=== PATIENT | female | born 1945 | race Caucasian/White ===

== ENCOUNTER 2019-02-21 12:31 | Inpatient (IN) | payer MEDICARE, BC ==
[2019-02-21] MEDS ORDERED: Ondansetron 4 MG/2 ML SDV IV PRN (13:09)
[2019-02-21] MEDS ORDERED: Morphine 2 MG/ML Syringe IVPUSH PRN (13:09)
[2019-02-21] MEDS ORDERED: Ondansetron 4 MG Tab.DIS PO PRN (13:09)
[2019-02-21] MEDS ORDERED: Loratadine 10 MG Tab PO PRN (13:11)
[2019-02-21] MEDS ORDERED: Potassium Chloride 10 MEQ in Premix Bag 1 BAG IV ONE (13:14)
[2019-02-21] MEDS ORDERED: Sodium Chloride 0.9% 1,000 ML IV SCH (13:15)
[2019-02-21] MEDS: Metoprolol Succinate 25 MG Tab.ER PO SCH (13:40)
[2019-02-21] MEDS: Magnesium Oxide 400 MG Tab PO SCH (13:40)
[2019-02-21] MEDS ORDERED: Metoprolol Tartrate 5 MG/5 ML SDV IVPUSH ONE (15:45)
[2019-02-21] MEDS: Sodium Chloride 0.9% 10 ML Syringe FLUSH PRN ×2 (16:09→17:12)
[2019-02-21] MEDS: Sucralfate 1 GM Tab PO SCH (16:17)
[2019-02-21] MEDS: Pantoprazole 40 MG Vial IVPUSH SCH (17:13)
[2019-02-21] MEDS: Digoxin 500 MCG/2 ML Amp IVPUSH SCH ×2 (17:13→23:27)
[2019-02-21] MEDS ORDERED: Iopamidol 612 MG/ML 100 ML Bottle IVPUSH ONE (17:21)
--- NOTE | 2019-02-21 17:47 | HP ---
CHIEF COMPLAINT: Regular followup appointment, but with nausea, diarrhea, dizziness. HISTORY OF PRESENT ILLNESS: This is a 73-year-old female who started feeling ill around Thanksgiving time. For the past 3 weeks, she has felt very bloated and nauseated. She has gained about 6 pounds despite not eating much, but she is drinking Coke. She otherwise states that she normally isn't constipated, but then there were a few days where she had more gas, and when it finally let go, she had diarrhea. It did help the pain, but she started vomiting. She is having these episodes more frequently. It is quite sore in her epigastric area when it comes. Her urine has been darker. Her stool was darker, but now it is light. She was taking ibuprofen for the pain. She is on Xarelto due to AFib. She has also felt dizzy and more short of breath when she tries to do anything. She even thought about going to the emergency room yesterday, but since she had an appointment, she waited until her visit today. ALLERGIES: Include penicillin, anaphylaxis; latex, rash; peas, hives; strawberries, hives; wool and alcohol; rash. MEDICATIONS: Her medication list is reviewed and it shows her to have Norvasc 5 mg daily. She uses a CPAP, Lasix 20 mg daily, lisinopril 20 mg daily, Claritin 10 mg as needed for allergies, magnesium 400 daily, Toprol 25 mg daily was at higher doses in the past, Paxil 20 mg daily, and Xarelto 20 mg daily. PAST MEDICAL HISTORY: Does include chronic AFib back in 2013 with RVR. She saw EP. She had a cardioversion, but went back into AFib. She had digoxin in the past due to higher rates, but it eventually was discontinued and she remains on Toprol. In 2015, she had an ablation pulmonary vein and another cardioversion during the procedure. Xarelto was recommended lifelong. She also had negative PET for ischemia in 2014, allergic rhinitis, depression, dilated cardiomyopathy, her last EF was 45% in 2014. She has had a previous head injury, essential hypertension, mitral regurgitation which was just trivial back in 2015, obstructive sleep apnea, she is compliant with CPAP, obesity. FAMILY HISTORY: Both parents are . Her mother had heart problems. Her father had lupus. SOCIAL HISTORY: She is . She lives at home with her , he has some memory problems, a retired business care navigator. She is a nonsmoker. She has 3 children. REVIEW OF SYSTEMS: General: As stated in HPI with the weight gain. No fever, no chills. HEENT: No trouble swallowing. No sore throat. Cardiac: She has not had chest pain, but has felt more short of breath. She is not really noticing these palpitations. Respiratory: Initially denied cough, but was coughing a little bit later while in the hospital. No wheezing. Abdomen: As stated in HPI. She has had nausea, vomiting, diarrhea. No blood in the stools, but they have been darker. Genitourinary: No burning with urination, but darker urination. Musculoskeletal: No new joint aches or pains. Otherwise, all systems reviewed and found to be negative unless otherwise stated. PHYSICAL EXAMINATION: Vital Signs: On admission to the hospital, weight 117.6 kg, pulse 145, blood pressure of 114/73, respiratory rate 16, O2 of 95% on room air, temperature 98.8. General: She is in no acute distress, but appears pale. Heart: Irregularly irregular with tachycardia. It was honestly too fast to appreciate any murmur. Lungs: Lung sounds were clear to auscultation bilaterally without crackles or wheezes. Abdomen: Positive bowel sounds. It is soft. Mildly distended and tender, especially in the mid epigastric area. No masses appreciated, but there appeared to be some air that was moving around, possibly dilated loops of bowel. However, she is not actively vomiting. LABORATORY DATA: Lab work obtained shows her to have a hemoglobin of 11.0, previous 14.3; white count 5.7; platelets 180. Sodium 142, glucose 79, BUN 16, creatinine 0.9, potassium 3.4, chloride 108, bicarb 23, calcium 8.9. Albumin, ALT, AST normal. Bilirubin 1.4. Lipids done as a regular exam. Cholesterol 110 total, HDL 25, lipase was less than 100. ProBNP was elevated at 8777. Troponin negative. Magnesium 2. INR 1.3. EKG was showing atrial fibrillation, rate 130 with RVR. Chest x-ray showed no infiltrates. She had cardiomegaly, but the lungs were clear. ASSESSMENT: 1. Atrial fibrillation with rapid ventricular rates. The patient has a known history of atrial fibrillation, possibly increased rate could be due to not feeling well, possibly acute blood loss anemia from an ulcer. Her hemoglobin has decreased. She appears dehydrated, it may fall further. At this point, we will give her an extra dose of her Toprol. Give her some IV metoprolol if needed. Hold off on Cardizem due to her history of heart failure and give her some IV digoxin. We will monitor her with telemetry. 2. Anemia, possibly from gastrointestinal bleeding. We will check her stool for occult blood. We will give her IV Protonix. I will give her some Carafate. We will see if this helps her abdominal pain. We will also get a CT scan. 3. Shortness of breath. This is presumably due to tachycardia. We will give her some IV fluids, but not more than a liter to see if that will help heart rates. 4. Abdominal pain, possibly ulcer. We are further investigating. 5. Essential hypertension. I am going to hold on her Norvasc and lisinopril to allow more metoprolol for rate control. 6. Obstructive sleep apnea. She is bringing in her CPAP. 7. Deep vein thrombosis prophylaxis. I will put her on SCDs. Due to concern for gastrointestinal bleeding, I am going to hold the Xarelto. PLAN: The patient is admitted to Acute Care. She is a code level 1. We will give her some IV Protonix, some fluids, lab work, monitoring rate control, monitoring with telemetry. Anticipate she will need at least a 2-night stay. She is aware that if her condition worsens, we would transfer her down to [facility]. MKA: 02/21/2019 17:06:11 MODL: 02/21/2019 17:39:12 /[id number]
--- NOTE | 2019-02-21 18:10 | CT ---
[id number] CT/CT Abdomen Pelvis W IV EXAM: ABDOMEN AND PELVIS CT WITH CONTRAST INDICATION: ABDOMINAL PAIN. COMPARISON: None. DISCUSSION: Colonic diverticulosis without evidence of diverticulitis. Cholelithiasis without CT evidence of acute cholecystitis. Ultrasound could provide further evaluation. The heart is enlarged with reflux of contrast into the hepatic veins and small bilateral pleural effusions compatible with cardiac insufficiency and fluid overload. 15 x 14 mm indeterminate left adrenal nodule. 56 mm cyst lower pole right kidney. Other tiny hypodense lesions scattered throughout both kidneys are too small to further characterize. Small fat-containing epigastric hernia. The pancreas, right adrenal gland, small bowel and appendix are normal in appearance. Minimal free fluid in the pelvis. No free air or adenopathy. Grade 1 degenerative L4-L5 spondylolisthesis. Degenerative changes throughout the imaged spine. The osseous structures are otherwise unremarkable. IMPRESSION: 1. Colonic diverticulosis without evidence of diverticulitis. 2. Cardiomegaly and small bilateral pleural effusions suggesting congestive heart failure. 3. Cholelithiasis without CT evidence of acute cholecystitis. Fran Nava MD 02/21/19 [id number] Thank you for allowing us to participate in the care of your patient.
[2019-02-22] MEDS: Sucralfate 1 GM Tab PO SCH ×2 (06:33→11:04)
[2019-02-22] MEDS: Pantoprazole 40 MG Vial IVPUSH SCH ×2 (06:34→18:16)
[2019-02-22 06:45] LABS: CHLORIDE,CL 106 mmol/L (98-107); SODIUM,NA 142 mmol/L (136-145)
[2019-02-22 06:52] LABS: ANION GAP 12.7 mmol/L (10-20)
[2019-02-22] MEDS ORDERED: amLODIPine 5 MG Tab PO SCH (08:00)
[2019-02-22] MEDS: PARoxetine 20 MG Tab PO SCH (08:36)
[2019-02-22] MEDS: Metoprolol Succinate 50 MG Tab.ER PO SCH (08:36)
[2019-02-22] MEDS: Magnesium Oxide 400 MG Tab PO SCH (08:37)
[2019-02-22] MEDS: Metoprolol Succinate 25 MG Tab.ER PO SCH (08:43)
[2019-02-22] MEDS ORDERED: Potassium Chloride 10 MEQ Tab.ER PO ONE (08:48)
[2019-02-22] MEDS ORDERED: Lisinopril 10 MG Tab PO ONE (08:48)
[2019-02-22] MEDS ORDERED: Furosemide 20 MG Tab PO ONE (08:49)
[2019-02-22] MEDS: Digoxin 125 MCG Tab PO SCH (09:14)
--- NOTE | 2019-02-22 09:28 | PN ---
Progress Note for APRIL WALDRON Date: 02/22/2019 Room #: VM.202 SUBJECTIVE: This is hospital day #2 on a 73-year-old admitted for abdominal pain and atrial fibrillation with RVR. She states that the pain is better, but not gone. She had a CT which did show gallstones, but no other acute pathology, no acute cholecystitis. She has been on IV Protonix. She has not had any black stools. Her hemoglobins are stable. Her shortness of breath has improved. She did get IV digoxin yesterday and increased metoprolol, and her heart rates are now down into the 110s. Her last heart rates up to 150s were around 5 p.m. She otherwise has been tolerating full liquid diet, but did have some mild vomiting from some juice last night. She did not require any pain medications. OBJECTIVE: Vital Signs: Temperature 97.3, her pulse was 93, blood pressure 120/86, respiratory rate 17, and O2 of 97% on room air. General: She is in no acute distress. Heart: Irregularly irregular. Lungs: Lung sounds are decreased, but no crackles or wheezes appreciated. Decreased mostly in the bases. Abdomen: Nondistended, nontender. She does admit she has had some right upper quadrant and mid epigastric tenderness. Extremities: Support stockings in place. She has no edema. Mental Status: Alert and orientated x3. LABORATORY DATA: Lab work today shows normal white count 4.4, hemoglobin 11.1, platelets 157. Sodium 142, potassium 3.7, chloride 106, bicarb 27, BUN 12, creatinine 0.8, glucose 86. TSH normal. ASSESSMENT: 1. Atrial fibrillation with rapid ventricular response. The patient is improving on increased metoprolol and digoxin. We will give her 50 mg of metoprolol today, 125 of digoxin orally. Monitor her with telemetry. 2. Abdominal pain, possibly due to gallstones. We will get her set up for an ultrasound, sounds like that will be outpatient. She still potentially could have an ulcer, so she will avoid all NSAIDs, and we will keep her on IV Protonix and Carafate. 3. Chronic diastolic heart failure. Actually, her last EF was like 45%. She will need this repeated when she is discharged. We will restart her Lasix 20 mg daily. Her lisinopril, I will restart at 10 mg daily, and monitor her fluid status closely. She has been off IV fluids. 4. Possible peptic ulcer disease. We will continue the current medications as described above. Likely discharge her home on PPI for at least 4 to 6 weeks. 5. Sleep apnea. She was using her CPAP. 6. Anemia. Hemoglobins are stable. We will repeat tomorrow. 7. Essential hypertension, controlled. I will still hold the Norvasc, but restart the lisinopril. 8. Deep vein thrombosis prophylaxis, so I am restarting her Xarelto. 9. Obesity. PLAN: At this point, the patient will continue acute cares. She will be upgraded on diet to regular cardiac. We will restart her oral Lasix and lisinopril. Monitor heart rates with telemetry as she does have a history of severe bradycardia in the past. We will give her some potassium today due to restarting Lasix. Repeat lab work tomorrow. Anticipate she will need another night stay until she is medically stabilized to go home. She will need to be stabilized from a cardiac standpoint before any decision would be made about gallbladder surgery versus maybe even needing an EGD to rule out ulcer. Possibly, she could have both conditions, and this was discussed with her. ISIAHA: 02/22/2019 08:55:07 MODL: 02/22/2019 09:20:44 /[id number]
[2019-02-22] MEDS: Acetaminophen 325 MG Tab PO PRN ×2 (11:34→19:15)
[2019-02-22] MEDS: Sodium Chloride 0.9% 10 ML Syringe FLUSH PRN (18:17)
[2019-02-22] MEDS ORDERED: Rivaroxaban 10 MG Tab PO SCH (20:00)
[2019-02-23] MEDS: Pantoprazole 40 MG Vial IVPUSH SCH (05:59)
[2019-02-23] MEDS: Sodium Chloride 0.9% 10 ML Syringe FLUSH PRN (05:59)
[2019-02-23 06:40] LABS: ANION GAP 13.8 mmol/L (10-20); CHLORIDE,CL 108 mmol/L (98-107); SODIUM,NA 145 mmol/L (136-145)
[2019-02-23] MEDS: Digoxin 125 MCG Tab PO SCH (07:40)
[2019-02-23] MEDS: PARoxetine 20 MG Tab PO SCH (07:40)
[2019-02-23] MEDS: Metoprolol Succinate 50 MG Tab.ER PO SCH (07:40)
[2019-02-23] MEDS: Magnesium Oxide 400 MG Tab PO SCH (07:41)
--- NOTE | 2019-02-23 11:02 | DISCH ---
PRIMARY DISCHARGE DIAGNOSES: 1. Atrial fibrillation with rapid ventricular response. 2. Abdominal pain probably due to some cholecystitis. No concern for acute cholecystitis requiring immediate surgery on this admission. 3. Chronic diastolic heart failure, EF 45%, stable without exacerbation. 4. Possible peptic ulcer disease. Hemoccult negative. No gastrointestinal bleeding. 5. Mild anemia with stable hemoglobins. 6. Sleep apnea, on CPAP. 7. Essential hypertension, controlled. 8. Obesity. 9. Depression. REASON FOR ADMISSION: On the date of admission, this 73-year-old female with a known history of atrial fibrillation going back to 2013, she has even had cardioversion and ablations in the past, came into the clinic not feeling well. She was nauseated, been feeling unwell with bloating and diarrhea since . She was found to have a heart rate of 143. She had been having darker stools, a lot of epigastric pain. Therefore, she was admitted. Concern could be possible GI bleeding, her hemoglobin had dropped from 14 to 11. This was monitored in the hospital and she had no ongoing bleeding. She did undergo an abdominal CT due to the spells of abdominal pain and it was noted to have diverticulosis, but no diverticulitis. There were gallstones. Ultrasound was recommended. The patient had 1 attack yesterday afternoon, was given Tylenol. She did not require any morphine. She is feeling better today. She was tolerating diet, eating 100%, was n.p.o. this morning for her planned ultrasound in the clinic. Discussed with the patient if her pain becomes severe, she would need to go to the emergency room. Lab work was also monitored. Her LFTs were normal. Her bilirubin initially was 1.4, came down to 1.1 on discharge. Hemoglobin was 11.7 on discharge. White count normal. TSH normal. Her heart rates improved with IV Lopressor 5 mg and increasing metoprolol up to 50, and then I loaded her with IV digoxin 500 mcg, and she will receive 125 daily. Heart rates improved. Her fastest heart rates were in the 150s on the , but she has had all heart rates under 110 since then of mostly in the 90s to 100. She is not coughing. No chest pain. Breathing is better and she was deemed stable for discharge. Lasix was initially held but restarted yesterday . PHYSICAL EXAMINATION: Discharge Vital Signs: Included temperature 96.3, pulse 99, blood pressure 125/66, respiratory rate 18, O2 of 96 on room air. General: She is in no acute distress. Heart: Regularly irregular. Lungs: Lung sounds were clear to auscultation bilaterally without crackles or wheezes. Abdomen: Nondistended. Mild tenderness in the right upper quadrant, but no rebound. No guarding. Extremities: Warm and dry. No edema. Mental Status: She is alert and orientated x3. DISCHARGE PLANS AND INSTRUCTIONS: She will follow up in the clinic with Dr. Beyer on 03/03/2019. An echo was scheduled for early March. She will have an ultrasound today and we will discuss with surgeon possible gallbladder surgery and at least try to get her stabilized from a cardiac standpoint as well for surgery. Prilosec 20 mg daily for 2 weeks, increase Toprol to 50 mg on discharge, digoxin 125 daily. This was all discussed with the patient who is agreeable with this plan. She is also on her Xarelto. We did hold it on the 16th until we ruled out GI bleeding, but then resumed it. Greater than 30 minutes spent on this discharge process. MKA: 02/23/2019 10:28:57 MODL: 02/23/2019 10:52:30 /[id number]
== END 2019-02-23 11:35 | disposition home or self-care (01) | DRG 309 ==
LOC: VM.MS 12:34
PROVIDERS: ADMIT Internal Medicine; ATTEND Internal Medicine
DX: I48.91 Unspecified atrial fibrillation (principal); I50.32 Chronic diastolic (congestive) heart failure; K80.10 Calculus of gallbladder with chronic cholecystitis without obstruction; Z68.41 Body mass index [BMI] 40.0-44.9, adult; D64.9 Anemia, unspecified; G47.33 Obstructive sleep apnea (adult) (pediatric); F32.9 Major depressive disorder, single episode, unspecified; K57.30 Diverticulosis of large intestine without perforation or abscess without bleeding; I11.0 Hypertensive heart disease with heart failure; K27.9 Peptic ulcer, site unspecified, unspecified as acute or chronic, without hemorrhage or perforation; I42.0 Dilated cardiomyopathy; E66.9 Obesity, unspecified; I34.0 Nonrheumatic mitral (valve) insufficiency; Z99.81 Dependence on supplemental oxygen; Z88.0 Allergy status to penicillin; Z91.040 Latex allergy status; Z91.018 Allergy to other foods; Z91.09 Other allergy status, other than to drugs and biological substances; Z79.899 Other long term (current) drug therapy
CPT/HCPCS: 36415; 74177; 80048; 80053; 82274; 82962; 83735; 83880; 84443; 84484; 85018; 85025; 85027; 85610; A9270-GY; C9113; J1160; J2405; J3480; J3490; J7030; Q9967

== ENCOUNTER 2019-03-07 14:48 | Emergency (ER) | payer MEDICARE, BC ==
[2019-03-07] MEDS ORDERED: Sodium Chloride 0.9% 10 ML Syringe FLUSH PRN (15:04)
[2019-03-07] MEDS ORDERED: Ondansetron 4 MG/2 ML SDV IVPUSH ONE (15:36)
[2019-03-07] MEDS ORDERED: Sodium Chloride 0.9% 1,000 ML IV ONE (15:36)
--- NOTE | 2019-03-07 15:46 | CR ---
[id number] RAD/RAD Chest PA or AP 1V EXAM: RAD Chest PA or AP 1V INDICATION: EPIGASTRIC PAIN, FEVER, CHILLS. COMPARISON: None. DISCUSSION: Cardiomediastinal silhouette is enlarged. No infiltrate, effusion, pneumothorax, or edema. Low lung volumes associated vascular crowding. IMPRESSION: Low lung volumes associated vascular crowding. Otherwise, no acute cardiopulmonary findings. Dereck So DO 03/07/19 1545 Thank you for allowing us to participate in the care of your patient.
[2019-03-07 16:10] LABS: CHLORIDE,CL 99 mmol/L (98-107); SODIUM,NA 134 mmol/L (136-145)
[2019-03-07 16:12] LABS: ANION GAP 16.4 mmol/L (10-20)
[2019-03-07] MEDS ORDERED: Take Home: Ciprofloxacin 500 MG Tab, 2 Tab Pack PO ONE (17:00)
[2019-03-07] MEDS ORDERED: Metoclopramide 10 MG Tab PO ONE (17:02)
--- NOTE | 2019-03-08 13:23 | EDM.PDOC ---
ED HPI GENERAL MEDICAL PROBLEM - General Chief Complaint: Gastrointestinal Problem Stated Complaint: heart Time Seen by Provider: 03/07/19 15:00 - History of Present Illness INITIAL COMMENTS - FREE TEXT/NARRATIVE: Pt. presents to ER with complaints of nausea, vomiting, and diarrhea for several days. She has been diagnosed with gallbladder disease but is not a candidate for cholecystectomy due to her PMH, specifically poorly controlled a- fib/afib with RVR in the past. She has had some discomfort in the LUQ in the past several days as well. She states that she has been feeling poorly for several days, has not been able to get out of the house due to weather. Pt. states that she was experiencing heart racing at home, but this has resolved. 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 Denies any fever or chills. No chest pain or shortness of breath. No lightheadedness. No dysuria. Onset Date: 03/07/19 Location: Reports: Abdomen, Generalized Left Lower Abdomen Pain Score (Numeric/FACES): 4 - Related Data Allergies Allergy/AdvReac Type Severity Reaction Status Date / Time latex Allergy Itching Verified 03/07/19 20:37 Penicillins Allergy Anaphylactic Verified 03/07/19 20:37 Shock strawberry [[place]] Allergy Rash Verified 03/07/19 20:37 Peas AdvReac Stomach Uncoded 02/22/19 11:31 Upset Home Meds: Home Meds Loratadine [Claritin] 10 mg PO DAILY PRN 03/30/13 [History] amLODIPine [Norvasc] 5 mg PO DAILY 03/30/13 [History] Magnesium Oxide 400 mg PO DAILY #30 tablet 04/01/13 [Rx] Furosemide 20 mg PO DAILY 02/21/19 [History] PARoxetine HCl [Paxil] 20 mg PO DAILY 02/21/19 [History] Rivaroxaban [Xarelto] 20 mg PO DAILY 02/21/19 [History] lisinopriL [Lisinopril] 20 mg PO DAILY 02/21/19 [History] Acetaminophen [Tylenol] 650 mg PO Q4H PRN tablet 02/23/19 [Rx] Digoxin 125 mcg PO DAILY #30 tablet 02/23/19 [Rx] Metoprolol Succinate [Toprol Xl] 50 mg PO DAILY #15 tab.sr.24h 02/23/19 [Rx] Omeprazole Magnesium [Prilosec Otc] 20 mg PO DAILY #1 tablet. 02/23/19 [Rx] Ondansetron [Zofran ODT] 4 mg PO Q4H PRN #20 tab.dis 02/23/19 [Rx] Rivaroxaban [Xarelto] 20 mg PO BEDTIME tablet 02/23/19 [Rx] Past Medical History HEENT History: Reports: Allergic Rhinitis Cardiovascular History: Reports: Afib, Hypertension, Other (See Below) Other Cardiovascular History: Mitral regurgitation. Dilated cardiomyopathy. 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: Post menopausal hormone replacement therapy Neurological History: Reports: Other (See Below) Other Neuro History: Hx of head injury Psychiatric History: Reports: Depression Endocrine/Metabolic History: Reports: Obesity/BMI 30+, Other (See Below) Other Endocrine/Metabolic History: Prediabetic - Infectious Disease History Infectious Disease History: Reports: Rheumatic Fever Social & Family History - Family History Family Medical History: Noncontributory - Tobacco Use Smoking Status *Q: Never Smoker - Caffeine Use Caffeine Use: Reports: Coffee, Soda ED ROS GENERAL - Review of Systems Review Of Systems: See Below Constitutional: Reports: No Symptoms HEENT: Reports: No Symptoms Respiratory: Reports: No Symptoms Cardiovascular: Reports: Palpitations (resolved) Endocrine: Reports: No Symptoms GI/Abdominal: Reports: Abdominal Pain, Nausea, Vomiting : Reports: No Symptoms Musculoskeletal: Reports: No Symptoms Skin: Reports: No Symptoms Neurological: Reports: No Symptoms Psychiatric: Reports: No Symptoms Hematologic/Lymphatic: Reports: No Symptoms Immunologic: Reports: No Symptoms ED EXAM, GENERAL - Physical Exam Exam: See Below Exam Limited By: No Limitations General Appearance: Alert, WD/WN, No Apparent Distress Nose: Normal Inspection, Normal Mucosa, No Blood Throat/Mouth: Normal Inspection, Normal Lips, Normal Teeth, Normal Gums, Normal Oropharynx, Normal Voice, No Airway Compromise Head: Atraumatic, Normocephalic Neck: Normal Inspection, Supple, Non-Tender, Full Range of Motion Respiratory/Chest: No Respiratory Distress, Lungs Clear, Normal Breath Sounds, No Accessory Muscle Use, Chest Non-Tender Cardiovascular: No Edema, No JVD, Irregularly Irregular Peripheral Pulses: 4+: Brachial (R) GI/Abdominal: Normal Bowel Sounds, Soft, Non-Tender, No Mass, Pelvis Stable (Female) Exam: Deferred Rectal (Female) Exam: Deferred Back Exam: Normal Inspection, Full Range of Motion Extremities: Normal Inspection, Normal Range of Motion, Non-Tender, No Pedal Edema, Normal Capillary Refill Neurological: Alert, Oriented, CN II-XII Intact, Normal Cognition, Normal Reflexes, No Motor/Sensory Deficits Psychiatric: Normal Affect, Anxious Skin Exam: Warm, Dry, Intact, No Rash EKG INTERPRETATION Rhythm: A-Fib Course - Vital Signs Last Recorded V/S: Last Vital Signs Temp 36.4 C 03/07/19 15:00 Pulse 85 03/07/19 17:00 Resp 16 03/07/19 16:40 BP 110/62 03/07/19 17:00 Pulse Ox 97 03/07/19 16:40 - Orders/Labs/Meds Orders: Active Orders 24 hr Category Date Time Status Cardiac Monitoring [RC] CONTINUOUS Care 03/07/19 15:04 Active EKG Documentation Completion [RC] STAT Care 03/07/19 15:04 Active CULTURE BLOOD [BC] Stat Lab 03/07/19 15:28 Received CULTURE BLOOD [BC] Stat Lab 03/07/19 16:39 Received Blood Culture x2 Reflex Set [OM.PC] Stat Oth 03/07/19 15:05 Ordered Peripheral IV Insertion Adult [OM.PC] Routine Oth 03/07/19 15:05 Ordered Labs: Laboratory Tests 03/07/19 03/07/19 03/07/19 Range/Units 15:10 15:28 15:28 WBC 11.2 H (4.0-10.0) x10^3/uL RBC 3.64 L (4.00-5.50) x10^6/uL Hgb 11.0 L (12.0-16.0) g/dL Hct 33.8 (33.0-47.0) % MCV 92.9 D (78.0-93.0) fL MCH 30.2 (26.0-32.0) pg MCHC 32.5 (32.0-36.0) g/dL RDW Coeff of Alexandra 16.1 H (10.0-15.0) % Plt Count 184 (130-400) x10^3/uL Neut % (Auto) 86.4 H (50.0-80.0) % Lymph % (Auto) 5.4 L (25.0-50.0) % [place] % (Auto) 7.9 (2.0-11.0) % Eos % (Auto) 0.2 (0.0-4.0) % Baso % (Auto) 0.1 L (0.2-1.2) % PT 15.6 H (10.0-12.8) SEC INR 1.4 L (2.0-3.5) Sodium (136-145) mmol/L Potassium (3.5-5.1) mmol/L Chloride (98-107) mmol/L Carbon Dioxide (21-32) mmol/L Anion Gap (10-20) mmol/L BUN (7-18) mg/dL Creatinine (0.55-1.02) mg/dL Est Cr Clr Drug Dosing Estimated GFR (MDRD) Glucose (74-106) mg/dL Lactic Acid (0.4-2.0) mmol/L Calcium (8.5-10.1) mg/dL Corrected Calcium (8.5-10.1) mg/dL Magnesium (1.8-2.4) mg/dL Total Bilirubin (0.2-1.0) mg/dL AST (15-37) U/L ALT (14-59) U/L Alkaline Phosphatase (46-116) U/L Troponin I (<=0.056) ng/mL C-Reactive Protein (<=0.9) mg/dL Total Protein (6.4-8.2) g/dL Albumin (3.4-5.0) g/dL Globulin Albumin/Globulin Ratio Urine Color Dark yellow H (YELLOW) Urine Appearance Cloudy H (CLEAR) Urine pH 5.5 (5.0-8.0) Ur Specific [place] 1.010 Urine Protein Negative (NEGATIVE) mg/dL Urine Glucose (UA) Negative (NEGATIVE) mg/dL Urine Ketones Negative (NEGATIVE) mg/dL Urine Occult Blood Negative (NEGATIVE) Urine Nitrite Negative (NEGATIVE) Urine Bilirubin Small H (NEGATIVE) Urine Urobilinogen 2.0 H (0.2) EU/dL Ur Leukocyte Esterase Small H (NEGATIVE) Urine RBC 0-5 (NOT SEEN) /HPF Urine WBC 5-10 H (NOT SEEN) /HPF Ur Squamous Epith Cells Many H (NEGATIVE) /HPF Ur Renal Epithelial Cell Few H (NEGATIVE) /HPF Amorphous Sediment Few Urine Bacteria Few H (NEGATIVE) /HPF Urine Mucus Few H (NEGATIVE) /LPF 03/07/19 03/07/19 Range/Units 15:28 15:28 WBC (4.0-10.0) x10^3/uL RBC (4.00-5.50) x10^6/uL Hgb (12.0-16.0) g/dL Hct (33.0-47.0) % MCV (78.0-93.0) fL MCH (26.0-32.0) pg MCHC (32.0-36.0) g/dL RDW Coeff of Alexandra (10.0-15.0) % Plt Count (130-400) x10^3/uL Neut % (Auto) (50.0-80.0) % Lymph % (Auto) (25.0-50.0) % [place] % (Auto) (2.0-11.0) % Eos % (Auto) (0.0-4.0) % Baso % (Auto) (0.2-1.2) % PT (10.0-12.8) SEC INR (2.0-3.5) Sodium 134 L D (136-145) mmol/L Potassium 4.4 (3.5-5.1) mmol/L Chloride 99 (98-107) mmol/L Carbon Dioxide 23 (21-32) mmol/L Anion Gap 16.4 (10-20) mmol/L BUN 27 H (7-18) mg/dL Creatinine 1.2 H (0.55-1.02) mg/dL Est Cr Clr Drug Dosing TNP Estimated GFR (MDRD) 44 Glucose 112 H (74-106) mg/dL Lactic Acid 1.3 (0.4-2.0) mmol/L Calcium 9.3 (8.5-10.1) mg/dL Corrected Calcium 10.02 (8.5-10.1) mg/dL Magnesium 1.9 (1.8-2.4) mg/dL Total Bilirubin 1.7 H (0.2-1.0) mg/dL AST 44 H (15-37) U/L ALT 41 (14-59) U/L Alkaline Phosphatase 61 (46-116) U/L Troponin I < 0.017 (<=0.056) ng/mL C-Reactive Protein 18.9 H (<=0.9) mg/dL Total Protein 6.9 (6.4-8.2) g/dL Albumin 3.1 L (3.4-5.0) g/dL Globulin 3.8 Albumin/Globulin Ratio 0.82 Urine Color (YELLOW) Urine Appearance (CLEAR) Urine pH (5.0-8.0) Ur Specific [place] Urine Protein (NEGATIVE) mg/dL Urine Glucose (UA) (NEGATIVE) mg/dL Urine Ketones (NEGATIVE) mg/dL Urine Occult Blood (NEGATIVE) Urine Nitrite (NEGATIVE) Urine Bilirubin (NEGATIVE) Urine Urobilinogen (0.2) EU/dL Ur Leukocyte Esterase (NEGATIVE) Urine RBC (NOT SEEN) /HPF Urine WBC (NOT SEEN) /HPF Ur Squamous Epith Cells (NEGATIVE) /HPF Ur Renal Epithelial Cell (NEGATIVE) /HPF Amorphous Sediment Urine Bacteria (NEGATIVE) /HPF Urine Mucus (NEGATIVE) /LPF Meds: Medications Discontinued Medications Generic Name Dose Route Start Last Admin Trade Name Freq PRN Reason Stop Dose Admin Ciprofloxacin 1 packet 03/07/19 17:00 03/07/19 17:15 Take Home: Ciprofloxacin 500 Mg, 2 Tab Pack PO 03/07/19 17:01 1 packet ONETIME ONE Administration Sodium Chloride 1,000 mls @ 1,000 mls/hr 03/07/19 15:36 03/07/19 15:53 Normal Saline IV 03/07/19 16:35 1,000 mls/hr .BOLUS ONE Administration Metoclopramide HCl 10 mg 03/07/19 17:02 03/07/19 17:15 Reglan PO 03/07/19 17:03 10 mg ONETIME ONE Administration Ondansetron HCl 4 mg 03/07/19 15:36 03/07/19 15:53 Zofran IVPUSH 03/07/19 15:37 4 mg ONETIME ONE Administration Sodium Chloride 10 ml 03/07/19 15:04 Saline Flush FLUSH ASDIRECTED PRN Keep Vein Open Departure - Departure Time of Disposition: 18:00 Disposition: Home, Self-Care 01 Clinical Impression: Gastroenteritis, Gall bladder disease - Discharge Information Instructions: Metoclopramide tablets, Cholelithiasis, [id number], Urinary Tract Infection, Adult, Ciprofloxacin tablets, Probiotics Referrals: Sally Beyer DO [Primary Care Provider] - Forms: ED Department Discharge Additional Instructions: Cipro 500mg twice daily for 3 days Reglan 10mg every 6 hours as needed for nausea/vomiting. You can still take the zofran (I would try this first) but you have this second medication if you need it. Follow-up with Dr. Beyer as directed. Return to ER if you have chest pain, racing heart, shortness of breath, lightheadedness, or other serious signs/symptoms. Sepsis Event Note - Evaluation Sepsis Screening Result: No Definite Risk - My Orders Last 24 Hours: My Active Orders 03/07/19 15:04 Cardiac Monitoring [RC] CONTINUOUS EKG Documentation Completion [RC] STAT 03/07/19 15:05 Blood Culture x2 Reflex Set [OM.PC] Stat Peripheral IV Insertion Adult [OM.PC] Routine 03/07/19 15:28 CULTURE BLOOD [BC] Stat 03/07/19 16:39 CULTURE BLOOD [BC] Stat - Assessment/Plan Last 24 Hours: My Active Orders 03/07/19 15:04 Cardiac Monitoring [RC] CONTINUOUS EKG Documentation Completion [RC] STAT 03/07/19 15:05 Blood Culture x2 Reflex Set [OM.PC] Stat Peripheral IV Insertion Adult [OM.PC] Routine 03/07/19 15:28 CULTURE BLOOD [BC] Stat 03/07/19 16:39 CULTURE BLOOD [BC] Stat Plan: Cipro 500mg twice daily for 3 days Reglan 10mg every 6 hours as needed for nausea/vomiting. You can still take the zofran (I would try this first) but you have this second medication if you need it. Follow-up with Dr. Beyer as directed. Return to ER if you have chest pain, racing heart, shortness of breath, lightheadedness, or other serious signs/symptoms.
== END 2019-03-07 17:25 | disposition home or self-care (01) ==
LOC: VM.ED 14:48
DX: K52.9 Noninfective gastroenteritis and colitis, unspecified (principal); K82.9 Disease of gallbladder, unspecified; I10 Essential (primary) hypertension; I48.91 Unspecified atrial fibrillation; F32.9 Major depressive disorder, single episode, unspecified; E66.9 Obesity, unspecified; Z68.43 Body mass index [BMI] 50.0-59.9, adult; Z79.899 Other long term (current) drug therapy; Z79.01 Long term (current) use of anticoagulants; Z88.0 Allergy status to penicillin; Z91.040 Latex allergy status; Z91.018 Allergy to other foods
CPT/HCPCS: 36415; 71045; 80053; 81001; 83605; 83735; 84484; 85025; 85610; 86140; 87040; 93005; 93010; 96360; 99284; A9270; J2405; J7030

== ENCOUNTER 2019-03-23 06:26 | Day surgery (SDC) | payer MEDICARE, BC ==
[~2019-03-23 06:26] MED LIST: Sodium Chloride 0.9% 10 ML Syringe FLUSH PRN
[2019-03-23] MEDS ORDERED: Lactated Ringers 1,000 ML IV SCH (07:00)
[2019-03-23] MEDS ORDERED: fentaNYL 100 MCG/2 ML SDV ONE (07:48)
[2019-03-23] MEDS ORDERED: Ondansetron 4 MG/2 ML SDV ONE (07:48)
[2019-03-23] MEDS ORDERED: Propofol 200 MG/20 ML SDV ONE (07:48)
[2019-03-23] MEDS ORDERED: Promethazine Topical Gel 0.5 ML Syringe TOP PRN (09:36)
--- NOTE | 2019-03-23 10:52 | OR ---
BRIEF HISTORY OF PRESENT ILLNESS: Ms. Beyer has had some episodic epigastric and upper quadrant discomfort. I recently saw her in clinic and recommended cholecystectomy for which she is scheduled. However, she does have some associated epigastric pain without clear symptoms of reflux. She is here for an EGD to evaluate her upper GI tract as the source of her discomfort. PROCEDURE PERFORMED: Esophagogastroduodenoscopy with biopsies. ANESTHESIA: MAC sedation. COMPLICATIONS: None. BLOOD LOSS: Minimal. FINDINGS: 1. The duodenum was normal and observed up to the third portion. 2. There was mild antritis, biopsies were taken and sent for H. pylori. 3. The hiatus was a Hill grade I. 4. Z-line was at 40 cm. 5. There was no evidence of hiatal hernia. 6. The esophagus appeared normal. DETAILS OF PROCEDURE: After informed consent was obtained, the patient was placed supine on the procedure table. MAC anesthesia was induced by Anesthesia colleagues. She was placed in left lateral decubitus position. The endoscope was introduced into her mouth down her esophagus into her stomach. The stomach was insufflated. The pylorus was intubated. The D1 and D2 portions of the duodenum were observed and appeared normal. There was some mild antritis. Biopsies were taken and sent for H. pylori. Retroflexed view was done, and the Hill grade I hiatus was visualized. There was no hiatal hernia. The abdomen was then desufflated, and the esophagus was examined on the way out. There was no evidence of esophagitis or Borja esophagus. The patient tolerated the procedure well. She was awoken from MAC anesthesia by Anesthesia colleagues without incident. RKM: 03/23/2019 08:04:48 MODL: 03/23/2019 09:56:11 /[id number]
== END 2019-03-23 10:45 | disposition home or self-care (01) ==
LOC: VM.SDS 06:26
PROVIDERS: ATTEND Student in an Organized Health Care Education/Training Program
DX: K29.70 Gastritis, unspecified, without bleeding (principal); K21.9 Gastro-esophageal reflux disease without esophagitis; I10 Essential (primary) hypertension; I48.20 Chronic atrial fibrillation, unspecified; K80.80 Other cholelithiasis without obstruction; G47.33 Obstructive sleep apnea (adult) (pediatric); F32.9 Major depressive disorder, single episode, unspecified; F41.9 Anxiety disorder, unspecified; E66.9 Obesity, unspecified; Z68.39 Body mass index [BMI] 39.0-39.9, adult; Z79.01 Long term (current) use of anticoagulants; Z79.899 Other long term (current) drug therapy; Z88.0 Allergy status to penicillin; Z91.040 Latex allergy status; Z91.018 Allergy to other foods; Z91.09 Other allergy status, other than to drugs and biological substances; Z99.89 Dependence on other enabling machines and devices
CPT/HCPCS: 00731; 43239; A9270-GY; J2405; J2704; J3010; J7120